=== PATIENT | female | born 1950 | race Caucasian/White ===

== ENCOUNTER → 2017-03-22 | Outpatient (CLI) | payer OTHER | END | disposition home or self-care (01) | LOC: CFH 10:15 | PROVIDERS: ATTEND Obstetrics & Gynecology | DX: Z12.31 Encounter for screening mammogram for malignant neoplasm of breast (principal) | CPT/HCPCS: G0202 ==

== ENCOUNTER → 2017-04-14 | Outpatient (CLI) | payer OTHER | END | disposition home or self-care (01) | LOC: CFH 08:37 | PROVIDERS: ATTEND Family Medicine | DX: M77.32 Calcaneal spur, left foot (principal); M25.475 Effusion, left foot ==

== ENCOUNTER → 2017-06-16 | Outpatient (CLI) | payer OTHER | END | disposition home or self-care (01) | LOC: CFH 16:24 | PROVIDERS: ATTEND Family Medicine | DX: L98.8 Other specified disorders of the skin and subcutaneous tissue (principal) ==

== ENCOUNTER 2018-01-18 03:33 | Inpatient (IN) | payer OTHER ==
[~2018-01-18] VITALS: Ht 157.5 cm; Wt 76.2 kg
[2018-01-18] MEDS ORDERED: VITAMIN D (03:48)
[2018-01-18] MEDS ORDERED: ATOR40TA78 PO (03:48)
[2018-01-18] MEDS ORDERED: ASPI-770 PO (03:48)
[2018-01-18] MEDS ORDERED: UBID100C41 PO (03:48)
[2018-01-18] MEDS ORDERED: ASPIRIN 81 MG TABLET CHEW ONE (04:08)
[2018-01-18 04:21] LABS: BASOPHILS # (AUTO) 0.03 x10^3/uL (0-0.1); BASOPHILS % (AUTO) 0 % (0-1); EOSINOPHILS # (AUTO) 0.45 x10^3/uL (0-0.4); EOSINOPHILS % (AUTO) 6 % (1-7); LYMPHOCYTES # (AUTO) 1.96 x10^3/uL (1-3.4); LYMPHOCYTES % (AUTO) 25 % (22-44); MD NO; MEAN CORPUSCULAR HEMOGLOBIN 30.3 pg (27.0-34.8); MEAN CORPUSCULAR HGB CONC 33.7 g/dL (32.4-35.8); MEAN CORPUSCULAR VOLUME 89.9 fL (80-100); MEAN PLATELET VOLUME 11.9 fL (7.4-10.4); MONOCYTES # (AUTO) 0.53 x10^3/uL (0.2-0.8); MONOCYTES % (AUTO) 7 % (2-9); NEUTROPHILS # (AUTO) 4.93 x10^3/uL (1.8-6.8); NEUTROPHILS % (AUTO) 62 % (42-75); PLATELET COUNT 196 x10^3/uL (130-400); RED CELL DISTRIBUTION WIDTH 12.9 % (9.6-15.2)
[2018-01-18] MEDS ORDERED: ASPIRIN 81 MG TABLET CHEW PO ONE (04:30)
[2018-01-18 04:34] LABS: ALBUMIN 3.9 g/dL (3.4-5.0); ANION GAP 7 mmol/L (5-15); CALCIUM 8.9 mg/dL (8.5-10.1); CHLORIDE 107 mmol/L (98-107)
[2018-01-18 04:39] LABS: ALANINE AMINOTRANSFERASE 24 U/L (12-78); ALKALINE PHOSPHATASE 67 U/L (45-117); BILIRUBIN,TOTAL 0.7 mg/dL (0.2-1.0); CREATININE 1.11 mg/dL (0.55-1.02); TOTAL PROTEIN 7.2 g/dL (6.4-8.2); TROPONIN I < 0.015 ng/mL (0.000-0.045)
[2018-01-18] MEDS ORDERED: ACETAMINOPHEN 325 MG TABLET ONE (05:19)
[2018-01-18] MEDS ORDERED: ACETAMINOPHEN 325 MG TABLET PO ONE (05:30)
[2018-01-18 06:30] VITALS: BP 154/91
[2018-01-18] MEDS ORDERED: SODIUM CHLORIDE 0.9% 1,000 ML IV SCH (07:57)
[2018-01-18] MEDS ORDERED: DOCUSATE 100 MG CAPSULE PO PRN (08:00)
[2018-01-18] MEDS ORDERED: HEPARIN 5,000 UNITS/ML, 1ML SQ SCH (08:00)
[2018-01-18] MEDS ORDERED: ACETAMINOPHEN 325 MG TABLET PO PRN (08:00)
[2018-01-18] MEDS ORDERED: ONDANSETRON 2MG/ML, 2ML IVPush PRN (08:00)
[2018-01-18] MEDS ORDERED: LABETALOL 5MG/ML, 20ML IVPush PRN (08:00)
[2018-01-18] MEDS ORDERED: OXYcodone IR 5MG TABLET PO PRN (08:00)
[2018-01-18] MEDS ORDERED: hydrALAzine 20 MG/ML, 1ML IVPush PRN (08:00)
[2018-01-18] MEDS ORDERED: PANTOPRAZOLE 40 MG IV IVPush SCH (08:00)
[2018-01-18] MEDS ORDERED: morphine SULFATE 10 MG/ML, 1ML IVPush PRN (08:00)
[2018-01-18] MEDS ORDERED: BISACODYL 10 MG SUPP PR PRN (08:00)
[2018-01-18] MEDS ORDERED: ENALAPRILAT 1.25 MG/ML, 2ML IVPush PRN (08:00)
[2018-01-18] MEDS ORDERED: POLYETHYLENE GLYCOL 17 GM PACKET PO PRN (08:00)
[2018-01-18] MEDS ORDERED: NITROGLYCERIN 0.4 MG BOTTLE (25 TABS) SL PRN (08:00)
[2018-01-18] MEDS ORDERED: ACETAMINOPHEN 500 MG TABLET PO SCH (09:00)
[2018-01-18] MEDS ORDERED: ASPIRIN 81 MG TABLET CHEW PO SCH (09:00)
[2018-01-18] MEDS ORDERED: LISINOPRIL 10 MG TABLET PO SCH (09:00)
[2018-01-18 09:56] LABS: TROPONIN I < 0.015 ng/mL (0.000-0.045)
[2018-01-18 09:56] LABS: FREE T4 (FREE THYROXINE) 1.26 ng/dL (0.76-1.46); THYROID STIMULATING HORMONE 5.95 mIU/L (0.358-3.740)
[2018-01-18 09:56] LABS: CULTURE INDICATED? NO; MICROSCOPIC NOT IND
[2018-01-18 12:08] LABS: HEMOGLOBIN A1C 5.8 % (4.2-6.3)
[2018-01-18 13:06] VITALS: BP 103/66
[2018-01-18] MEDS ORDERED: ALUMINUM/MAG/SIMETHICONE 30 ML UDC PO ONE (13:30)
[2018-01-18] MEDS ORDERED: OMEP-110 PO (14:10)
[2018-01-18] MEDS ORDERED: ACET500T71 PO (14:10)
[2018-01-18 14:34] VITALS: BP 119/74
[2018-01-18] MEDS ORDERED: ATORVASTATIN 40 MG TABLET PO SCH (21:00)
[2018-01-19] MEDS ORDERED: ASPIRIN 325 MG TABLET EC PO SCH (06:00)
== END 2018-01-18 16:34 | disposition home or self-care (01) | DRG 391 ==
LOC: ED 05:47 → EDIP 06:00 → 5SO 06:21 → DCLOUNGE 16:08
PROVIDERS: ADMIT Internal Medicine; ATTEND Internal Medicine
DX: K30 Functional dyspepsia (principal); N17.0 Acute kidney failure with tubular necrosis; E78.5 Hyperlipidemia, unspecified; K76.0 Fatty (change of) liver, not elsewhere classified; I10 Essential (primary) hypertension; N64.4 Mastodynia; M25.552 Pain in left hip; K21.9 Gastro-esophageal reflux disease without esophagitis; Z79.82 Long term (current) use of aspirin; Z82.49 Family history of ischemic heart disease and other diseases of the circulatory system; Z90.49 Acquired absence of other specified parts of digestive tract; Z90.710 Acquired absence of both cervix and uterus
CPT/HCPCS: 36415; 71046; 76642; 76700; 78452; 80053; 81003; 82306; 82607; 83036; 83690; 83735; 84439; 84443; 84484; 85025; 93005; 93017; 93306; 96374; J1644; A9502; C9113; C9898; J7030

== ENCOUNTER → 2018-05-02 | Outpatient (CLI) | payer OTHER ==
[~2018-05-02] MED LIST: ACET500T71 PO; ASPI81TA59 PO; ATOR40TA78 PO; OMEP-110 PO; UBID100C41 PO; VITAMIN D
== END | disposition home or self-care (01) ==
LOC: CFH 14:24
PROVIDERS: ATTEND Obstetrics & Gynecology Female Pelvic Medicine and Reconstructive Surgery
DX: Z12.31 Encounter for screening mammogram for malignant neoplasm of breast (principal); Z13.820 Encounter for screening for osteoporosis; M85.89 Other specified disorders of bone density and structure, multiple sites; Z78.0 Asymptomatic menopausal state; Z80.3 Family history of malignant neoplasm of breast
CPT/HCPCS: 77080; 77067

== ENCOUNTER → 2020-07-15 | Outpatient (CLI) | payer MEDICARE ==
[~2020-07-15] MED LIST changes: +ACET500T64 PO; -ACET500T71 PO
== END | disposition home or self-care (01) ==
LOC: CFH 14:25
PROVIDERS: ATTEND Family Medicine
DX: Z12.31 Encounter for screening mammogram for malignant neoplasm of breast (principal)
CPT/HCPCS: 76641; 77063; 77067